=== PATIENT | male | born 1955 | race Caucasian/White ===

== ENCOUNTER → 2019-01-31 | Outpatient (CLI) | payer OTHER ==
--- NOTE | 2019-01-31 19:19 | XCELERA REPORT ---
[address] [address] Transthoracic Echocardiogram Report Name: BLESSING CASTILLO Age: 63 yrs Gender: Male : 1955 Patient Status: Outpatient Patient Location: Study Date: 01/31/2019 02:01 PM Height: 72 in Weight: 220 lb BSA: 2.2 m2 Procedure: A complete two-dimensional transthoracic echocardiogram was performed (2D, M-mode, spectral and color flow Doppler). The study was technically adequate with some images being suboptimal in quality. Reason For Study: CP Ordering Physician: KIKA WILKINS Performed By: Margie Raya Interpretation Summary The left ventricular ejection fraction is normal. Doppler measurements suggest impaired left ventricular relaxation, which is associated with grade I/IV or mild diastolic dysfunction There is borderline concentric left ventricular hypertrophy. The left ventricle is grossly normal size. Wall motion cannot be accurately commented on, but no definite regional wall motion abnormalities noted. The right ventricle is grossly normal size. The left atrial size is normal. The right atrium is normal in size There is a trace amount of mitral regurgitation There is no mitral valve stenosis. No aortic regurgitation is present. There is no aortic valve stenosis There is a trace or physiologic amount of tricuspid regurgitation Tricuspid regurgitation jet envelope not well defined to measure RV systolic pressure accurately. The aortic root is not well visualized but is probably normal size. The inferior vena cava appeared normal and decreased > 50% with respiration (RAP 5-10 mmHg) Minimal pericardial effusion. MMode/2D Measurements & Calculations RVDd: 3.3 cm LVIDd: 5.2 cm FS: 37.6 % Ao root diam: 3.1 cm IVSd: 0.65 cm LVIDs: 3.2 cm EDV(Teich): 129.1 ml Ao root area: 7.7 cm2 LVPWd: 1.0 cm ESV(Teich): 42.2 ml EF(Teich): 67.3 % Doppler Measurements & Calculations MV E max paulino: MV dec slope: Ao V2 max: LV V1 max P.8 cm/sec 475.0 cm/sec2 134.0 cm/sec 4.5 mmHg MV A max paulino: MV dec time: 0.18 sec Ao max PG: LV V1 max: 104.3 cm/sec 7.2 mmHg 106.0 cm/sec MV E/A: 0.81 PA V2 max: Pulm Sys Paulino: 129.4 cm/sec 60.0 cm/sec PA max P.7 mmHg Pulm Celeste Paulino: 59.4 cm/sec Pulm A Revs Paulino: 21.4 cm/sec Pulm A Revs Dur: 0.15 sec Pulm S/D: 1.0 Left Ventricle The left ventricle is grossly normal size. There is borderline concentric left ventricular hypertrophy. The left ventricular ejection fraction is normal. Doppler measurements suggest impaired left ventricular relaxation, which is associated with grade I/IV or mild diastolic dysfunction. Wall motion cannot be accurately commented on, but no definite regional wall motion abnormalities noted. Right Ventricle The right ventricle is grossly normal size. There is normal right ventricular wall thickness. The right ventricular systolic function is normal. Atria The right atrium is normal in size. The left atrial size is normal. Interarterial septum not well visualized and not well dopplered. Cannot comment on ASD/PFO presence. Mitral Valve The mitral valve is grossly normal. There is no mitral valve stenosis. There is a trace amount of mitral regurgitation. Aortic Valve The aortic valve is grossly normal. There is no aortic valve stenosis. No aortic regurgitation is present. Tricuspid Valve The tricuspid valve is not well visualized, but is grossly normal. There is no tricuspid stenosis. There is a trace or physiologic amount of tricuspid regurgitation. Tricuspid regurgitation jet envelope not well defined to measure RV systolic pressure accurately. Pulmonic Valve The pulmonic valve is not well visualized. Great Vessels The aortic root is not well visualized but is probably normal size. The inferior vena cava appeared normal and decreased > 50% with respiration (RAP 5-10 mmHg). Effusions Minimal pericardial effusion. : KIKA WILKINS Shyamal
== END ==
LOC: SP 13:51
PROVIDERS: ATTEND Family Medicine
DX: R07.9 Chest pain, unspecified (principal)
CPT/HCPCS: 93306

== ENCOUNTER 2019-11-12 20:42 | Emergency (ER) | payer OTHER ==
--- NOTE | 2019-11-12 21:10 | ER Document Report ---
ED Medical Screen (RME) - General Chief Complaint: Fever Stated Complaint: FEVER/SORE THROAT Time Seen by Provider: 11/12/19 21:05 Primary Care Provider: KIKA WILKINS DO [Primary Care Provider] - Follow up as needed Mode of Arrival: Ambulatory Information source: Patient Notes: 64-year-old male presents emergency department with complaints of cough fever that started today. Reports he had a little bit of cough yesterday worsening cough today. Reports he does have a history of diabetes and high blood pressure. Denies sore throat. Denies vomiting diarrhea. Respiratory rate even unlabored I have greeted and performed a rapid initial assessment of this patient. A comprehensive ED assessment and evaluation of the patient, analysis of test results and completion of the medical decision making process will be conducted by additional ED providers. TRAVEL OUTSIDE OF THE [place] IN LAST 30 DAYS: No - Related Data Allergies/Adverse Reactions: No Known Allergies Allergy (Verified 07/06/16 08:23) Home Medications: insulin, metroplol, lisinopril, hctz, Past Medical History - Social History Chew tobacco use (# tins/day): No Frequency of alcohol use: None Drug Abuse: None - Past Medical History Cardiac Medical History: Reports: Hx Hypercholesterolemia, Hx Hypertension - on meds Denies: Hx Coronary Artery Disease, Hx Heart Attack Pulmonary Medical History: Denies: Hx Asthma, Hx Bronchitis, Hx COPD, Hx Pneumonia Neurological Medical History: Denies: Hx Cerebrovascular Accident, Hx Seizures Endocrine Medical History: Reports: Hx Diabetes Mellitus Type 1 Musculoskeltal Medical History: Reports Hx Arthritis - osteo Past Surgical History: Reports: Hx Appendectomy, Hx Orthopedic Surgery - plantar fascitis bilat, Hx Tonsillectomy - Immunizations Hx Diphtheria, Pertussis, Tetanus Vaccination: Yes Physical Exam - Vital signs Vitals: Temp Pulse Resp BP Pulse Ox 99.4 F 106 H 17 169/88 H 96 11/12/19 20:54 11/12/19 20:54 11/12/19 20:54 11/12/19 20:54 11/12/19 20:54 Course - Vital Signs Vital signs: Temp Pulse Resp BP Pulse Ox 99.4 F 106 H 17 169/88 H 96 11/12/19 20:54 11/12/19 20:54 11/12/19 20:54 11/12/19 20:54 11/12/19 20:54 Doctor's Discharge - Discharge Referrals: KIKA WILKINS DO [Primary Care Provider] - Follow up as needed
[2019-11-12] MEDS ORDERED: IBUPROFEN 800 MG TABLET PO ONE (21:11)
--- NOTE | 2019-11-12 22:01 | RADIOLOGY REPORT (SQ) ---
EXAM DESCRIPTION: XR CHEST 2 VIEWS COMPLETED DATE/TME: 11/12/2019 21:09 CLINICAL HISTORY: 64 years, Male, cough fever COMPARISON: Prior CT abdomen/pelvis dated 02/09/2011 NUMBER OF VIEWS: Three TECHNIQUE: Frontal and lateral radiographs of the chest were acquired LIMITATIONS: None. FINDINGS: Cardiac and mediastinal contours are normal. Bands of opacity are noted about the left lung base, indicating areas of atelectasis and/or scar. Opacity at the right lung base corresponds to a prominent epicardial fat pad. Lungs are otherwise clear. No pleural effusion or pneumothorax. IMPRESSION: No acute disease. copyright 2010 [employer]- All Rights Reserved
--- NOTE | 2019-11-13 00:27 | ER Document Report ---
ED Fever - General Chief Complaint: Fever Stated Complaint: FEVER/SORE THROAT Time Seen by Provider: 11/12/19 21:05 Primary Care Provider: KIKA WILKINS DO [Primary Care Provider] - Follow up as needed Mode of Arrival: Ambulatory Notes: 64-year-old male presents to the emergency department history of diabetes mellitus, complains of fever which developed tonight along with upper respiratory symptoms congestion and drainage. He also has a cough. Denies shortness of breath or chest pain. He denies a prior history of pneumonia or COPD. TRAVEL OUTSIDE OF THE [place] IN LAST 30 DAYS: No - Related Data Allergies/Adverse Reactions: No Known Allergies Allergy (Verified 07/06/16 08:23) Home Medications: insulin, metroplol, lisinopril, hctz, Past Medical History - General Information source: Patient - Social History Smoking Status: Never Smoker Chew tobacco use (# tins/day): No Frequency of alcohol use: None Drug Abuse: None Family History: Reviewed & Not Pertinent Patient has suicidal ideation: No Patient has homicidal ideation: No - Past Medical History Cardiac Medical History: Reports: Hx Hypercholesterolemia, Hx Hypertension - on meds Denies: Hx Coronary Artery Disease, Hx Heart Attack Pulmonary Medical History: Denies: Hx Asthma, Hx Bronchitis, Hx COPD, Hx Pneumonia Neurological Medical History: Denies: Hx Cerebrovascular Accident, Hx Seizures Endocrine Medical History: Reports: Hx Diabetes Mellitus Type 1, Hx Diabetes Mellitus Type 2 Musculoskeletal Medical History: Reports Hx Arthritis - osteo Past Surgical History: Reports: Hx Appendectomy, Hx Orthopedic Surgery - plantar fascitis bilat, Hx Tonsillectomy - Immunizations Hx Diphtheria, Pertussis, Tetanus Vaccination: Yes Hx Pneumococcal Vaccination: 08/27/14 Review of Systems - Review of Systems Notes: Constitutional: +fever. HENT: Negative for sore throat. Eyes: Negative for visual changes. Cardiovascular: Negative for chest pain. Respiratory: + Cough, negative for shortness of breath. Gastrointestinal: Negative for abdominal pain, vomiting or diarrhea. Genitourinary: Negative for dysuria. Musculoskeletal: Negative for back pain. Skin: Negative for rash. Neurological: Negative for headaches, weakness or numbness. 10 point ROS negative except as marked above and in HPI. Physical Exam - Vital signs Vitals: Temp Pulse Resp BP Pulse Ox 99.4 F 106 H 17 169/88 H 96 11/12/19 20:54 11/12/19 20:54 11/12/19 20:54 11/12/19 20:54 11/12/19 20:54 - Notes Notes: PHYSICAL EXAMINATION: Physical Exam: General: Well-nourished well-developed male in no acute distress HEENT: NC/AT, pupils equal round and reactive to light, MM moist,nares clear, Neck: supple, no adenopathy, no masses. Lungs: clear, no wheezing, no rales no rhonchi CVS: Regular rate and rhythm no murmur gallop or rub Abdomen: Soft active nontender, no masses, no hepatosplenomegaly Ext: No edema clubbing or cyanosis. Neuro: Alert and responsive, moving all 4 extremities on command, cranial nerves intact. Skin: Intact no open lesions, no rash PSYCH: Normal mood, normal affect. Course - Re-evaluation Re-evalutation: 11/13/19 02:01 Patient with upper story symptoms, history of diabetes mellitus, history of cough and congestion. He is quite concerned about possibilities of developing worsening symptoms. Chest x-ray negative labs unremarkable, flu test negative. I explained to the patient he likely has a viral infection, given his concerns and worries Zithromax and Tessalon Perles given for cough and possible early bronchitis. I have asked him to follow-up with his primary care doctor as needed patient acknowledges understanding of this plan and is in agreement. - Vital Signs Vital signs: Temp Pulse Resp BP Pulse Ox 99.4 F 106 H 17 169/88 H 96 11/12/19 22:57 11/12/19 20:54 11/12/19 20:54 11/12/19 20:54 11/12/19 20:54 - Laboratory Result Diagrams: 11/13/19 00:36 11/13/19 00:36 Laboratory results interpreted by me: 11/13/19 00:36 Glucose 151 H Discharge - Discharge Clinical Impression: Upper respiratory tract infection Qualifiers: URI type: unspecified URI Qualified Code(s): J06.9 - Acute upper respiratory infection, unspecified Acute bronchitis Qualifiers: Bronchitis organism: unspecified organism Qualified Code(s): J20.9 - Acute bronchitis, unspecified Fever Qualifiers: Encounter type: initial encounter Condition: Good Disposition: HOME, SELF-CARE Instructions: Acetaminophen, Bronchitis ([facility]), Fever ([facility]), Upper Respiratory Illness ([facility]) Additional Instructions: Please take medications as prescribed, please follow-up with your doctor as needed, return to the emergency department if his symptoms are worsening or if you have other concerns. Prescriptions: Benzonatate [Tessalon Perles 100 mg Capsule] 200 mg PO Q8HP PRN #40 capsule PRN Reason: Azithromycin [Zithromax 250 mg Tablet] 250 mg PO ASDIR PRN #6 tablet PRN Reason: Referrals: KIKA WILKINS DO [Primary Care Provider] - Follow up as needed
[2019-11-13 00:56] LABS: ABSOLUTE EOSINOPHILS # (AUTO) 0.1 10^3/uL (0.0-0.6); ABSOLUTE LYMPHOCYTES (AUTO) 1.5 10^3/uL (0.5-4.7); ABSOLUTE MONOCYTES (AUTO) 0.8 10^3/uL (0.1-1.4); ABSOLUTE NEUT (AUTO) 5.6 10^3/uL (1.7-8.2); BASOPHILS % (AUTO) 0.3 % (0-2); EOSINOPHILS % (AUTO) 1.3 % (0-6); HEMATOCRIT 42.5 % (37.9-51.0); LYMPHOCYTES % (AUTO) 18.5 % (13-45); MEAN CORPUSCULAR HEMOGLOBIN 30.9 pg (27.0-33.4); MEAN CORPUSCULAR HGB CONC 35.3 g/dL (32.0-36.0); MEAN CORPUSCULAR VOLUME 87 fl (80-97); MONOCYTES % (AUTO) 10.1 % (3-13); PLATELET COUNT 168 10^3/uL (150-450); RED BLOOD COUNT 4.86 10^6/uL (4.35-5.55); RED CELL DISTRIBUTION WIDTH 13.7 % (11.5-14.0); SEGMENTED NEUTROPHILS % (AUTO) 69.8 % (42-78); TOTAL CELLS COUNTED % (AUTO) 100 %
[2019-11-13 01:05] LABS: A TYPE INFLUENZA AG NEGATIVE (NEGATIVE); B INFLUENZA AG NEGATIVE (NEGATIVE)
[2019-11-13 01:17] LABS: ANION GAP 14 (5-19); BLOOD UREA NITROGEN 16 mg/dL (7-20); CALCIUM 9.4 mg/dL (8.4-10.2); CARBON DIOXIDE 25 mmol/L (22-30); CHLORIDE 100 mmol/L (98-107); GLUCOSE 151 mg/dL (75-110); POTASSIUM 3.8 mmol/L (3.6-5.0)
[2019-11-13] MEDS ORDERED: CEFTRIAXONE INJ 1000 MG VIAL IM ONE (02:10)
[2019-11-13 03:31] VITALS: BP 138/82
== END 2019-11-13 02:40 | disposition home or self-care (01) ==
LOC: ER 20:42
DX: J06.9 Acute upper respiratory infection, unspecified (principal); J20.9 Acute bronchitis, unspecified; R50.9 Fever, unspecified; J02.9 Acute pharyngitis, unspecified; R09.81 Nasal congestion; R09.89 Other specified symptoms and signs involving the circulatory and respiratory systems; R05 Cough; Z79.4 Long term (current) use of insulin; Z79.899 Other long term (current) drug therapy; E11.9 Type 2 diabetes mellitus without complications; I10 Essential (primary) hypertension
CPT/HCPCS: 99283; 96372; 36415; 85025; 80048; 87804; 71046; J0696

== ENCOUNTER → 2020-12-05 | Outpatient (CLI) | payer OTHER ==
[2020-12-05 12:10] LABS: ABSOLUTE EOSINOPHILS # (AUTO) 0.1 10^3/uL (0.0-0.6); ABSOLUTE LYMPHOCYTES (AUTO) 3.3 10^3/uL (0.5-4.7); ABSOLUTE MONOCYTES (AUTO) 0.7 10^3/uL (0.1-1.4); BASOPHILS % (AUTO) 0.4 % (0-2); EOSINOPHILS % (AUTO) 0.6 % (0-6); HEMATOCRIT 42.1 % (37.9-51.0); HEMOGLOBIN 14.5 g/dL (13.5-17.0); LYMPHOCYTES % (AUTO) 27.1 % (13-45); MEAN CORPUSCULAR HEMOGLOBIN 30.1 pg (27.0-33.4); MEAN CORPUSCULAR HGB CONC 34.4 g/dL (32.0-36.0); MEAN CORPUSCULAR VOLUME 88 fl (80-97); MONOCYTES % (AUTO) 6.1 % (3-13); PLATELET COUNT 191 10^3/uL (150-450); RED BLOOD COUNT 4.82 10^6/uL (4.35-5.55); RED CELL DISTRIBUTION WIDTH 13.7 % (11.5-14.0); SEGMENTED NEUTROPHILS % (AUTO) 65.8 % (42-78); TOTAL CELLS COUNTED % (AUTO) 100 %; WHITE BLOOD COUNT 12.1 10^3/uL (4.0-10.5)
[2020-12-05 12:17] LABS: ALBUMIN 4.7 g/dL (3.5-5.0); ALKALINE PHOSPHATASE 71 U/L (38-126); AMYLASE 76 U/L (30-110); ANION GAP 8 (5-19); ASPARTATE AMINO TRANSFERASE 22 U/L (17-59); BILIRUBIN,DIRECT 0.2 mg/dL (0.0-0.4); BILIRUBIN,TOTAL 0.7 mg/dL (0.2-1.3); BLOOD UREA NITROGEN 24 mg/dL (7-20); CALCIUM 9.6 mg/dL (8.4-10.2); CARBON DIOXIDE 27 mmol/L (22-30); CHLORIDE 102 mmol/L (98-107); GLUCOSE 181 mg/dL (75-110); POTASSIUM 3.9 mmol/L (3.6-5.0); TOTAL PROTEIN 7.4 g/dL (6.3-8.2)
--- OUTSIDE RECORDS SUMMARY | 2020-12-08 10:21 | XMS REPORT ---
:1955 Demographics Address [address] [place] [address] Mobile Phone [phone] Email Address Preferred Language [id number] Marital Status Unknown Gnosticism Affiliation Unknown Race Unknown Additional Race(s) Unavailable Unavailable White Ethnic Group Unknown Author Organization [facility] Address [facility] [address] [place] [address] Care Team Providers Name Role Phone Emil Attending Clinician Unavailable Karl CHILDS Attending Clinician Unavailable Rodo Attending Clinician Unavailable Emil Attending Clinician Unavailable Allergies, Adverse Reactions, Alerts Allergy Allergy Status Severity Reaction(s) Onset Inactive Treating C omments Name Type Date Date Clinician Amitriptyli Allergy to Active Mild Hives ne substance Jardiance Allergy to Inactive substance Medications Ordered Filled Start Stop Current Ordering Indication Dosage Frequency Signature Comments Components Medication Medication Date Date Medication? Clinician (SIG) Name Name metoprolol No metoprolol succinate succinate ER 50 mg ER 50 mg tablet,exte tablet,ext nded ended release 24 release 24 hr 1 daily hr 1 daily Jardiance No Jardiance 10 mg 10 mg tablet TAKE tablet 1 TABLET TAKE 1 DAILY TABLET DAILY metoprolol No metoprolol succinate succinate ER 100 mg ER 100 mg tablet,exte tablet,ext nded ended release 24 release 24 hr Take 1 hr Take 1 tablet tablet every day every day by oral by oral route for route for 90 days. 90 days. colesevelam No 4 Q1D colesevela 625 mg m 625 mg tablet Take tablet 4 tablets Take 4 every day tablets by oral every day route for by oral 30 days. route for 30 days. hydrochloro No hydrochlor thiazide 25 othiazide mg tablet 25 mg tablet Toprol XL No 1 Q1D Toprol XL 100 mg 100 mg tablet,exte tablet,ext nded ended release release Take 1 Take 1 tablet tablet every day every day by oral by oral route for route for 90 days. 90 days. amlodipine No amlodipine 5 mg tablet 5 mg tablet amoxicillin No amoxicilli 500 mg n 500 mg capsule capsule atorvastati No atorvastat n 10 mg in 10 mg tablet tablet Cholestyram No Cholestyra ine Light 4 mine Light gram oral 4 gram powder oral powder eszopiclone No eszopiclon 2 mg tablet e 2 mg tablet hydrochloro No hydrochlor thiazide othiazide 12.5 mg 12.5 mg tablet tablet lisinopril No lisinopril 40 mg 40 mg tablet tablet Novolog No Novolog U-100 U-100 Insulin Insulin aspart 100 aspart 100 unit/mL unit/mL subcutaneou subcutaneo s solution us solution oxycodone-a No oxycodone- cetaminophe acetaminop n 5 mg-325 hen 5 mg tablet mg-325 mg tablet pantoprazol No pantoprazo e 40 mg le 40 mg tablet,devendra tablet,del yed release ayed release Toprol XL No Toprol XL 50 mg 50 mg tablet,exte tablet,ext nded ended release release tramadol 50 No tramadol mg tablet 50 mg tablet zolpidem 10 No zolpidem mg tablet 10 mg tablet azithromyci No azithromyc n 250 mg in 250 mg tablet tablet benzonatate No benzonatat 200 mg e 200 mg capsule capsule amoxicillin No amoxicilli 875 n 875 mg-potassiu mg-potassi m um clavulanate clavulanat 125 mg e 125 mg tablet tablet Problems Condition Condition Condition Status Onset Resolution Last Treatin g Comments Name Details Category Date Date Treatment Clinician Date Glenoid Glenoid Problem Active 2018-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 2-16 detachment Detachment 00:00: 00 Right Right Problem Active 2018-11 rotator Rotator 2-03 cuff Cuff 00:00: syndrome Syndrome 00 Essential Essential Problem Active hypertensio Hypertensio 9-28 n n 00:00: 00 Type 1 Type 1 Problem Inactiv diabetes Diabetes e 7-27 mellitus Mellitus 00:00: well Well 00 controlled Controlled Dyslipidemi Dyslipidemi Problem Active a a 3-23 00:00: 00 Neuropathy Neuropathy Problem Active due to Due to 8-23 diabetes Diabetes 00:00: mellitus Mellitus 00 Procedures Procedure Date / Time Performed Performing Clinician Brijesh gonzalez OFFICE/OUTPATIENT VISIT EST 2020-03-13 10:45:00 OFFICE/OUTPATIENT VISIT EST 2020-01-07 13:15:00 XR, shoulder 2019-10-15 00:00:00 MRI, shoulder, w/o contrast 2019-10-15 00:00:00 OFFICE/OUTPATIENT VISIT EST 2019-09-23 15:30:00 OFFICE/OUTPATIENT VISIT EST 2019-01-22 08:00:00 OFFICE/OUTPATIENT VISIT EST 2018-09-04 12:10:00 OFFICE/OUTPATIENT VISIT EST 2018-08-28 15:00:00 Results Test Description Test Time Test Comments Text Results Atomic Results Result Comments COMPREHENSIVE METABOLIC PANEL 2020-01-07 14:37:00 Test Item Value Reference Range Comments BUN/CREATININE RATIO (test code = 64219215) NOT APPLICABLE (calc ) 6-22 UREA NITROGEN (BUN) (test code = 63671934) 14 mg/dL 7-25 ALT (test code = 69918259) 32 U/L 9-46 PROTEIN, TOTAL (test code = 78892660) 7.2 g/dL 6.1-8.1 eGFR (test code = 06683297) 107 mL/min/1.73m2 > OR = 60 GLUCOSE (test code = 51009797) 138 mg/dL 65-99 ALKALINE PHOSPHATASE (test code = 72221372) 55 U/L 35-1 44 ALBUMIN (test code = 37460840) 5.0 g/dL 3.6-5.1 AST (test code = 89128588) 17 U/L 10-35 eGFR NON-AFR. [place] (test code = 02205808) 92 mL/min/1.73m2 > OR = 60 POTASSIUM (test code = 91043538) 4.1 mmol/L 3.5-5.3 CREATININE (test code = 05558366) 0.88 mg/dL 0.70-1.25 GLOBULIN (test code = 15347079) 2.2 g/dL (calc) 1.9-3.7 CALCIUM (test code = 72242207) 9.8 mg/dL 8.6-10.3 ALBUMIN/GLOBULIN RATIO (test code = 61023367) 2.3 (calc) 1. 0-2.5 SODIUM (test code = 13700717) 141 mmol/L 135-146 CHLORIDE (test code = 32153245) 105 mmol/L 98-110 CARBON DIOXIDE (test code = 52647641) 26 mmol/L 20-32 BILIRUBIN, TOTAL (test code = 88159478) 0.8 mg/dL 0.2-1.2 ALBUMIN, RANDOM URINE [id number] 14:37:00 Test Item Value Reference Range Comments ALBUMIN, URINE (test code = 94286420) 0.6 mg/dL CREATININE, RANDOM URINE (test code = 76 mg/dL 20-320 91998330) ALBUMIN/CREATININE RATIO, RANDOM URINE (test 8 mcg/mg creat <30 code = 19952746) CBC (INCLUDES DIFF/PLT)2020-01-07 14:37:00 Test Item Value Reference Range Comments NEUTROPHILS (test code = 68371690) 54.1 % MCH (test code = 94838336) 31.4 pg 27.0-33.0 BASOPHILS (test code = 57379886) 0.4 % HEMOGLOBIN (test code = 27900255) 15.1 g/dL 13.2-17.1 MONOCYTES (test code = 59432231) 7.1 % ABSOLUTE EOSINOPHILS (test code = 64196760) 121 cells/uL 15-5 00 MCHC (test code = 66778927) 35.1 g/dL 32.0-36.0 WHITE BLOOD CELL COUNT (test code = 7.1 Thousand/uL 3.8-10.8 59557691) ABSOLUTE LYMPHOCYTES (test code = 77795440) 2606 cells/uL 850- 3900 ABSOLUTE MONOCYTES (test code = 80072709) 504 cells/uL 200-95 0 MPV (test code = 03297780) 10.7 fL 7.5-12.5 PLATELET COUNT (test code = 25147493) 225 Thousand/uL 140-400 EOSINOPHILS (test code = 57551841) 1.7 % HEMATOCRIT (test code = 62920573) 43.0 % 38.5-50.0 RED BLOOD CELL COUNT (test code = 62910901) 4.81 Million/uL 4.20 -5.80 LYMPHOCYTES (test code = 93125728) 36.7 % RDW (test code = 80496351) 13.2 % 11.0-15.0 ABSOLUTE NEUTROPHILS (test code = 04772209) 3841 cells/uL 1500 -7800 MCV (test code = 33879269) 89.4 fL 80.0-100.0 ABSOLUTE BASOPHILS (test code = 73445860) 28 cells/uL 0-200 [id number] 14:37:001.42PSA, [id number] 14:37:001.0LIPID PANEL WITH REFLEX TO DIRECT [id number] 14:37:00 Test Item Value Reference Range Comments NON HDL CHOLESTEROL (test code = 74994578) 68 mg/dL (calc) <130 HDL CHOLESTEROL (test code = 01209582) 42 mg/dL > OR = 40 TRIGLYCERIDES (test code = 53387707) 168 mg/dL <150 CHOLESTEROL, TOTAL (test code = 34086894) 110 mg/dL <200 CHOL/HDLC RATIO (test code = 23051283) 2.6 (calc) <5.0 LDL-CHOLESTEROL (test code = 25864686) 43 mg/dL (calc) Hemoglobin A1C\S\2020-01-07 13:15:00 Test Item Value Reference Range Comments HgbA1C, Fingerstick (test code = 4548-4) 7.1 % 4-5.6 Thyrotropin [Units/volume] in Serum or Plasma by Detection limit <= 0.05 mIU/[id number] 18:47:00 Test Item Value Reference Range Comments thyroid stim hormone (test code = thyroid stim 0.6993 uIU/mL 0 .3500-4.9400 hormone) Prostate Specific Ag Free [Mass/volume] in Serum or [id number] 18:30:00 Test Item Value Reference Range Comments PSA screen (test code = PSA screen) 1.21 NG/mL Comprehensive metabolic 2000 panel - Serum or [id number] 18:20:00 Test Item Value Reference Range Comments sodium (test code = sodium) 139 mmol/L 137-144 potassium (test code = potassium) 3.7 mmol/L 3.1-5.1 chloride (test code = chloride) 103 mmol/L 101-110 carbon dioxide (test code = carbon dioxide) 27 mmol/L 23-3 1 glucose (test code = glucose) 168 mg/dL 70-105 BUN (test code = BUN) 15.0 mg/dL 8.4-25.7 creatinine (test code = creatinine) 1.15 mg/dL 0.72-1.25 anion gap (test code = anion gap) 13 mmol/L 7-16 calcium (test code = calcium) 9.5 mg/dL 8.4-10.2 total bilirubin (test code = total bilirubin) 0.6 mg/dL 0. 1-1.2 total protein (test code = total protein) 7.7 g/dL 6.0-8. 3 albumin (test code = albumin) 4.8 g/dL 3.2-5.2 globulin (test code = globulin) 2.9 g/dL 2.6-4.6 A/G ratio (test code = A/G ratio) 1.7 g/dL 1.1-2.5 AST (test code = AST) 21 U/L 5-34 alkaline phosphatase (test code = alkaline 72 U/L 40-15 0 phosphatase) ALT (test code = ALT) 34 U/L 0-55 Lipid 1996 panel - Serum or [id number] 18:20:00 Test Item Value Reference Range Comments cholesterol (test code = cholesterol) 112 mg/dL 0-200 triglyceride (test code = triglyceride) 226.0 mg/dL 0.0-150. 0 HDL cholesterol (test code = HDL cholesterol) 36 mg/dL 60 -100 VLDL (test code = VLDL) 45 mg/dL 5-40 Cholesterol in LDL [Mass/volume] in Serum or 31 mg/dL 0.0 -129.0 Plasma (test code = 2089-1) CBC w/ [id number] 18:10:00 Test Item Value Reference Range Comments white blood count (test code = white blood count) 9.0 K/mm3 3.6-11.1 red blood count (test code = red blood count) 4.68 M/uL 4. 27-5.49 hemoglobin (test code = hemoglobin) 14.5 g/dL 12.9-16.1 hematocrit (test code = hematocrit) 40.2 % 37.7-46.5 mean corpuscular volume (test code = mean 86.0 fL 79.3-9 4.8 corpuscular volume) mean corpuscular hemoglobin (test code = mean 31.0 pg 26 .8-33.2 corpuscular hemoglobin) mean corpuscular HGB conc (test code = mean 36.0 g/dL 33.5 -35.5 corpuscular HGB conc) red cell distribution width (test code = red cell 13.9 % 12.0-15.1 distribution width) platelet count (test code = platelet count) 237 K/mm3 165- 353 mean platelet volume (test code = mean platelet 8.7 fL 7.5-10.6 volume) neutrophils % (test code = neutrophils %) 64.7 % 43.2-7 1.5 lymph % (test code = lymph %) 27.7 % 16.8-43.4 mono % (test code = mono %) 5.6 % 4.6-12.4 eos % (test code = eos %) 1.5 % 0.7-7.8 baso % (test code = baso %) 0.5 % 0.2-1.2 neutrophil # (test code = neutrophil #) 5.8 K/mm3 1.9-7.2 lymph # (test code = lymph #) 2.5 K/mm3 1.1-2.7 mono # (test code = mono #) 0.5 K/mm3 0.3-0.8 eosinophil # (test code = eosinophil #) 0.1 K/mm3 0.0-0.5 baso # (test code = baso #) 0.0 K/mm3 0.0-0.1 Urinalysis macro (dipstick) panel - [id number] 15:36:00 Test Item Value Reference Range Comments color (test code = color) yellow yellow - straw clarity (test code = clarity) clear clear glucose (test code = glucose) 250 mg/dL negative bilirubin (test code = bilirubin) neg negative ketones (test code = ketones) neg negative specific gravity (test code = specific gravity) 1.020 1.005-1.030 blood (test code = blood) neg negative pH (test code = pH) 5.5 6.0-8.0 protein (test code = protein) neg negative - trace urobilinogen (test code = urobilinogen) 0.2 mg/dL 0.2-1.0 nitrites (test code = nitrites) neg negative leukocytes (test code = leukocytes) neg negative Albumin/Creatinine [Ratio] in [id number] 15:36:00 Test Item Value Reference Range Comments albumin (test code = albumin) 10 mg/L <20 creatinine (test code = creatinine) 100 mg/dL 10-300 albumin to creatinine ratio (test code = albumin <30 <30 to creatinine ratio) controls okay (test code = controls okay) okay yes Glucose [Mass/volume] in Capillary [id number] 14:49:00 Test Item Value Reference Range Comments glucose fingerstick (test code = glucose 191 mg/dL 70-110 fingerstick) Hemoglobin A1c/Hemoglobin.total in [id number] 14:49:00 Test Item Value Reference Range Comments Hemoglobin A1c/Hemoglobin.total in Blood (test code = 6.3 % 4-5.6 4548-4) Hemoglobin A1C (Performed Elsewhere)\S\2019-08-09 08:19:00 Test Item Value Reference Range Comments HgbA1C (Performed Elsewhere) (test code = 4548-4) 6.3 % 4-5.6 Glucose (Performed Elsewhere)\S\2019-01-30 15:12:00 Test Item Value Reference Range Comments Glucose (test code = 2345-7) 148 mg/dL Hemoglobin A1C (Performed Elsewhere)\S\2019-01-30 15:12:00 Test Item Value Reference Range Comments HgbA1C (Performed Elsewhere) (test code = 4548-4) 6.5 % 4-5.6 COMPREHENSIVE METABOLIC [id number] 09:28:00 Test Item Value Reference Range Comments ALKALINE PHOSPHATASE (test code = 53 U/L 40-115 80304156) UREA NITROGEN (BUN) (test code = 15 mg/dL 7-25 16837822) POTASSIUM (test code = 54204825) 4.3 mmol/L 3.5-5.3 BUN/CREATININE RATIO (test code = NOT APPLICABLE (calc) 6-22 22265534) ALBUMIN (test code = 71413695) 4.8 g/dL 3.6-5.1 PROTEIN, TOTAL (test code = 99850927) 6.6 g/dL 6.1-8.1 SODIUM (test code = 57396733) 140 mmol/L 135-146 eGFR NON-AFR. [place] (test code = 82 mL/min/1.73m2 > OR = 60 08119752) CHLORIDE (test code = 94161917) 102 mmol/L 98-110 GLUCOSE (test code = 93879343) 149 mg/dL 65-99 AST (test code = 93453421) 19 U/L 10-35 GLOBULIN (test code = 92333133) 1.8 g/dL (calc) 1.9-3.7 CREATININE (test code = 76618174) 0.99 mg/dL 0.70-1.25 eGFR (test code = 95 mL/min/1.73m2 > OR = 60 08567788) ALBUMIN/GLOBULIN RATIO (test code = 2.7 (calc) 1.0-2.5 73861545) CARBON DIOXIDE (test code = 10037648) 31 mmol/L 20-32 ALT (test code = 12858589) 33 U/L 9-46 BILIRUBIN, TOTAL (test code = 0.9 mg/dL 0.2-1.2 97993052) CALCIUM (test code = 11904301) 9.9 mg/dL 8.6-10.3 HEMOGLOBIN A1c WITH [id number] 09:28:00 Test Item Value Reference Range Comments HEMOGLOBIN A1c (test code = 69065020) 6.5 % of total Hgb <5.7 eAG (mmol/L) (test code = 33051509) 7.7 (calc) eAG (mg/dL) (test code = 14174326) 140 (calc) [id number] 09:28:001.67CBC (INCLUDES DIFF/PLT)2019-01-23 09:28:00 Test Item Value Reference Range Comments ABSOLUTE NEUTROPHILS (test code = 67733765) 4425 cells/uL 1500 -7800 ABSOLUTE BASOPHILS (test code = 45464195) 37 cells/uL 0-200 MONOCYTES (test code = 54396505) 5.8 % RDW (test code = 12376325) 12.5 % 11.0-15.0 PLATELET COUNT (test code = 43243946) 204 Thousand/uL 140-400 ABSOLUTE EOSINOPHILS (test code = 36773474) 89 cells/uL 15-5 00 RED BLOOD CELL COUNT (test code = 97672638) 5.08 Million/uL 4.20 -5.80 NEUTROPHILS (test code = 58779398) 59.8 % LYMPHOCYTES (test code = 11324943) 32.7 % HEMOGLOBIN (test code = 55639133) 15.4 g/dL 13.2-17.1 EOSINOPHILS (test code = 53442698) 1.2 % MCH (test code = 24360367) 30.3 pg 27.0-33.0 BASOPHILS (test code = 58615711) 0.5 % HEMATOCRIT (test code = 15187613) 44.2 % 38.5-50.0 MCHC (test code = 56383936) 34.8 g/dL 32.0-36.0 MCV (test code = 12493158) 87.0 fL 80.0-100.0 WHITE BLOOD CELL COUNT (test code = 7.4 Thousand/uL 3.8-10.8 11378635) MPV (test code = 93417433) 10.4 fL 7.5-12.5 ABSOLUTE LYMPHOCYTES (test code = 01855170) 2420 cells/uL 850- 3900 ABSOLUTE MONOCYTES (test code = 70627422) 429 cells/uL 200-95 0 LIPID PANEL WITH REFLEX TO DIRECT [id number] 09:28:00 Test Item Value Reference Range Comments NON HDL CHOLESTEROL (test code = 18411115) 65 mg/dL (calc) <130 HDL CHOLESTEROL (test code = 96112156) 45 mg/dL >40 CHOL/HDLC RATIO (test code = 27152052) 2.4 (calc) <5.0 LDL-CHOLESTEROL (test code = 10773840) 44 mg/dL (calc) CHOLESTEROL, TOTAL (test code = 27579175) 110 mg/dL <200 TRIGLYCERIDES (test code = 88560105) 133 mg/dL <150 MICROALBUMIN, RANDOM URINE (W/CREATININE)2019-01-23 09:28:00 Test Item Value Reference Range Comments MICROALBUMIN (test code = 57252550) 0.2 mg/dL CREATININE, RANDOM URINE (test code = 116 mg/dL 20-320 30911195) MICROALBUMIN/CREATININE RATIO, RANDOM URINE 2 mcg/mg creat <30 (test code = 00033869) Rapid Strep\S\2018-09-04 12:10:00 Test Item Value Reference Range Comments Rapid Strep (test code = RAPIDSTREP) negative N/A Glucose, Finger Stick\S\2018-09-04 12:10:00 Test Item Value Reference Range Comments Glucose, Fingerstick (test code = FSGLUCOSE) 126 mg/dL 70- 99 Hemoglobin A1C (Performed Elsewhere)\S\2018-06-08 10:38:00 Test Item Value Reference Range Comments HgbA1C (Performed Elsewhere) (test code = 4548-4) 5.9 % 4-5.6 Hemoglobin A1C (Performed Elsewhere)\S\2018-02-02 11:19:00 Test Item Value Reference Range Comments HgbA1C (Performed Elsewhere) (test code = 4548-4) 6.5 % 4-5.6 Assessments Condition Name Status Diagnosis Date Treating Clinici an Type 2 diabetes mellitus Active 2020-10-14 14:18:55 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 2020-10-14 1 0:04:03 Essential hypertension 2020-10-14 10:04:06 Dyslipidemia 2020-10-14 10:04:07 Administration of influenza vaccine 2020-10-14 1 4:13:47 Diabetic neuropathy 2020-03-18 11:36:35 Type 1 diabetes mellitus well Active 2020-03-18 11:36:3 5 controlled Essential hypertension 2020-03-18 11:36:36 Dyslipidemia 2020-03-18 11:36:36 Type 2 diabetes mellitus without Active complications [facility] (current) use of insulin Active Functional diarrhea Active Otalgia, left ear Active Type 2 diabetes mellitus without Active 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 Essential (primary) hypertension Active Functional diarrhea Active Pain of right shoulder joint Active 2020-01-02 15:46:10 Stiffness of right shoulder Active 2020-01-02 15:46:10 Difficulty lifting Active 2020-01-02 15:46:10 Pain of right shoulder joint Active 2019-12-24 16:32:28 Stiffness of right shoulder Active 2019-12-24 16:32:28 Difficulty lifting Active 2019-12-24 16:32:28 Pain of right shoulder joint Active 2019-12-18 10:50:20 Stiffness of right shoulder Active 2019-12-18 10:50:20 Difficulty lifting Active 2019-12-18 10:50:20 Pain of right shoulder joint Active 2019-12-12 14:36:30 Stiffness of right shoulder Active 2019-12-12 14:36:30 Difficulty lifting Active 2019-12-12 14:36:30 Pain of right shoulder joint Active 2019-12-04 15:04:20 Stiffness of right shoulder Active 2019-12-04 15:04:20 Difficulty lifting Active 2019-12-04 15:04:20 Pain of right shoulder joint Active 2019-11-21 14:08:42 Stiffness of right shoulder Active 2019-11-21 14:08:42 Difficulty lifting Active 2019-11-21 14:08:42 Pain of right shoulder joint Active 2019-11-18 13:02:08 Stiffness of right shoulder Active 2019-11-18 13:02:08 Difficulty lifting Active 2019-11-18 13:02:08 Pain of right shoulder joint Active 2019-11-14 15:52:48 Stiffness of right shoulder Active 2019-11-14 15:52:57 Difficulty lifting Active 2019-11-14 15:53:05 Impingement syndrome of right shoulder Active 2019-10-13 8 14:03:07 region Glenoid labrum detachment Active 2019-10-28 14:10:46 Right rotator cuff syndrome Active 2019-10-15 14:42:58 Shoulder pain Active 2019-10-09 14:51:43 Type 2 diabetes mellitus without Active complications [facility] (current) use of insulin Active Essential (primary) hypertension Active Disorder of the skin and subcutaneous Active tissue, unspecified Type 1 diabetes mellitus Active 2019-08-09 14:39:21 Dyslipidemia Active 2019-08-09 15:17:19 Screening for malignant neoplasm of Active 2019-08-09 1 5:18:08 prostate Essential hypertension Active 2019-08-10 12:46:42 Type 1 diabetes mellitus well Active 2019-01-30 15:16:1 3 controlled Dyslipidemia Active 2019-01-30 16:04:10 Essential hypertension Active 2019-01-30 20:44:09 Essential (primary) hypertension Active Mixed hyperlipidemia Active Type 2 diabetes mellitus without Active complications Presence of insulin pump (external) Active (internal) Unspecified abdominal pain Active Acute pharyngitis, unspecified Active Glycosuria Active Body mass index (BMI) 29.0-29.9, adult Active Precordial pain Active Type 2 diabetes mellitus without Active complications [facility] (current) use of insulin Active Mixed hyperlipidemia Active Encounters Start End Encounter Admission Attending Care Care Encounter Date/Time Date/Time Type Type Clinicians Facility Department ID 2020-10-14 2020-10-14 Mechelle Walsh [id number] 00:00:00 00:00:00 [facility], [id number] MD: [address], [facility] [place] [address], Ph. 2020-03-20 2020-03-20 Mechelle Walsh [id number] 00:00:00 00:00:00 Mignon Childs, [id number] MD: [address], [address], [place] [address], Ph. 2020-03-13 2020-03-13 [facility] [id number] 10:45:00 10:45:00 Yosef Godoy [id number] s [id number] and [id number] [facility], 2020-01-07 2020-01-07 Outpatient Emil [facility] C [id number] 13:15:00 13:15:00 Yosef Godoy [id number] s [id number] and [id number] [facility] 2020-01-02 2020-01-02 [facility], [id number] 00:00:00 00:00:00 carlene Morales, P.A. P.A. PT: [address] [address], Ph. 2019-12-24 2019-12-24 [facility], [id number] 00:00:00 00:00:00 carlene Morales, P.A. P.A. [id number] PT: [address] [address], Ph. 2019-12-17 2019-12-17 [facility], [id number] 00:00:00 00:00:00 carlene Morales, P.A. P.A. PT: 1999 [facility] [address] [address], Ph. 2019-12-12 2019-12-12 [facility], [id number] 00:00:00 00:00:00 carlene Morales, P.A. P.A. [id number] PT: 1999 [facility] [address] [address], Ph. 2019-12-04 2019-12-04 Aury LozanoOrt [facility], [id number] 00:00:00 00:00:00 carlene Morales P.A. P.A. [id number] PT: 1999 [facility] [place] [address], Ph. 2019-11-21 2019-11-21 Aury Lozano[facility], [id number] 00:00:00 00:00:00 carlene Morales P.A. P.A. PT: 1999 [facility], [address], [facility] [place] [address], Ph. 2019-11-18 2019-11-18 Aury LozanoOrt [facility], [id number] 00:00:00 00:00:00 carlene Morales P.A. P.A. PT: 1999 [facility], [address], [facility] [place] [address], Ph. 2019-11-14 2019-11-14 Aury LozanoOrt [facility], [id number] 00:00:00 00:00:00 carlene Morales P.A. P.A. PT: 1999 [facility], [address], [facility] [place] [address], Ph. 2019-10-30 2019-10-30 Bogdan LozanoOrt [facility], [id number] 00:00:00 00:00:00 carlene Strickland P.A. P.A. [id number] MD: 1999 [facility], [address], [place] [address], Ph. 2019-10-28 2019-10-28 Chapo Williamson BlakeOrt [facility], [id number] 00:00:00 00:00:00 carlene Jauregui P.A. P.A. [id number] MD: 1999 [facility], [address], [facility] [place] [address], Ph. 2019-10-15 2019-10-15 Chapo LozanoOrt [facility], [id number] 00:00:00 00:00:00 carlene Jauregui P.A. P.AMelissa [id number] MD: [address] [place] [address] [address], [place] [address], Ph. 2019-09-23 2019-09-23 [facility] 1 [id number] 15:30:00 15:30:00 Yosef Godoy [id number] s [id number] and [id number] [facility], 2019-08-09 2019-08-09 Outpatient LUCERO CHILDS, [facility] [id number] 16:44:00 16:44:00 MECHELLE Quiñones 2019-08-09 2019-08-09 Mechelle Barajas Jillian Mcneillt [id number] 00:00:00 00:00:00 [facility], [id number] MD: [address], [facility], [place] [address], Ph. 2019-01-30 2019-01-30 Mechelle Barajas Jillian Mcneillt [id number] 00:00:00 00:00:00 [facility], [id number] MD: [id number] [employer] [place] [address], Ph. 2019-01-22 2019-01-22 Outpatient Emil [facility] 3 [id number] 08:00:00 08:00:00 Yosef Godoy [id number] s [id number] and [id number] [facility], 2018-09-04 2018-09-04 Outpatient Rodo [facility] D [id number] 12:10:00 12:10:00 Tessie Godoy [id number] s [id number] and [id number] [facility] [place] 2018-08-28 2018-08-28 Outpatient Emil [facility] E [id number] 15:00:00 15:00:00 Yosef Godoy [id number] s [id number] and [id number] [facility] [place] Immunizations Ordered Immunization Filled Immunization Date Status Commen ts Refusal Reason Name Name influenza, 2020-10-14 Completed injectable, 14:14:01 quadrivalent influenza, 2019-07-14 Completed injectable, 00:00:00 quadrivalent pneumococcal, 2017-11-13 Completed unspecified 00:00:00 formulation Plan of Treatment Planned Activity Planned Date Details Comments Future Appointment 2021-04-23 11:40:00 Mechelle Childs, [facility]; [facility], [place] [address] Social History Smoking Status Start Date Stop Date Never Smoker Unknown If Ever Smoked Vital Signs Vital Name Observation Time Observation Value Comments BP Diastolic 2020-10-14 00:00:00 82 mm[Hg] Height 2020-10-14 00:00:00 73 [in_i] BMI (Body Mass Index) 2020-10-14 00:00:00 32.9 kg/m2 BP Systolic 2020-10-14 00:00:00 138 mm[Hg] Body Weight 2020-10-14 00:00:00 249 [lb_av] BP Diastolic 2020-03-20 00:00:00 70 mm[Hg] Height 2020-03-20 00:00:00 73 [in_i] BMI (Body Mass Index) 2020-03-20 00:00:00 31.7 kg/m2 BP Systolic 2020-03-20 00:00:00 109 mm[Hg] Body Weight 2020-03-20 00:00:00 240 [lb_av] BP Diastolic 2019-08-09 00:00:00 74 mm[Hg] Height 2019-08-09 00:00:00 73 [in_i] BMI (Body Mass Index) 2019-08-09 00:00:00 31.4 kg/m2 BP Systolic 2019-08-09 00:00:00 137 mm[Hg] Body Weight 2019-08-09 00:00:00 238 [lb_av] BP Diastolic 2019-01-30 00:00:00 68 mm[Hg] Height 2019-01-30 00:00:00 73 [in_i] BMI (Body Mass Index) 2019-01-30 00:00:00 30.3 kg/m2 BP Systolic 2019-01-30 00:00:00 124 mm[Hg] Body Weight 2019-01-30 00:00:00 229.3 [lb_av] Hospital Discharge Instructions 1. Type 2 diabetes mellitus HbA1c (hemoglobin A1c), blood glucose, fingerstick, blood Jardiance 10 mg tablet 2. Neuropathy due to diabetes mellitus 3. Essential hypertension 4. Dyslipidemia5. Administration of influenza vaccine Afluria Quad 60 mcg (15 mcg x 4)/0.5 mL intramuscular susp. Discussion Note: None recorded. Patient educational handouts: No information available.1. Diabetic neuropathy 2. Type 1 diabetes mellitus well controlled HbA1c (hemoglobin A1c), blood glucose, fingerstick, blood Novolog U-100 Insulin aspart 100 unit/mL subcutaneous solution 3. Essential hypertension 4. Dyslipidemia Discussion Note: None recorded. Patient educational handouts: No information available.1. Right rotator cuff syndrome MRI, shoulder, w/o contrast - Patient has a wearable diabetic monitor than can be removed for the MRI. 2. Shoulder pain shoulder pain: care instructions XR, shoulder Discussion Note: None recorded.1. Type 1 diabetes mellitus HbA1c (hemoglobin A1c), blood glucose, fingerstick, blood alb umin/creatinine, ratio, urine urinalysis, dipstick 2. Dyslipidemia atorvastatin 10 mg tablet CMP, serum or plasma CBC w/ auto diff lipid panel, serum TSH, serum or plasma 3. Screening for malignant neoplasm of prostate PSA, free, serum or plasma 4. Essential hypertension Discussion Note: None recorded. Patient educational handouts: No information available.1. Type 1 diabetes mellitus well controlled HbA1c (hemoglobin A1c), blood glucose, fingerstick, blood 2. Dyslipidemia 3. Essential hypertension Discussion Note: None recorded. Patient educational handouts: No information available.
== END ==
LOC: OD 11:10
PROVIDERS: ATTEND Nurse Practitioner Family
DX: R10.11 Right upper quadrant pain (principal)
CPT/HCPCS: 36415; 80053; 82150; 83690; 85025; 86301

== ENCOUNTER → 2020-12-07 | Outpatient (CLI) | payer OTHER | LOC: OD 09:33 | PROVIDERS: ATTEND Nurse Practitioner Family | DX: R10.11 Right upper quadrant pain (principal); Z53.9 Procedure and treatment not carried out, unspecified reason ==